=== PATIENT | female | born 1935 | race Caucasian/White ===

== ENCOUNTER → 2017-04-01 | Outpatient (CLI) | payer OTHER ==
[2016-04-06 21:08] VITALS: BP 152/62
--- NOTE | 2017-04-02 11:04 | MRI ---
STUDY: MRI OF THE BRAIN WITHOUT GADOLINIUM HISTORY: Other amnesia. Headache. Chronic sinusitis. Technique: Multiplanar multi-sequence MRI of the brain was obtained utilizing standard departmental protocol. Sagittal and axial T1, axial T2, FLAIR, diffusion (DWI/ADC) images through the brain were performed. Comparison: Head CT dated February 09, 2016. Findings: The sulci, cisterns and ventricles are prominent consistent with diffuse volume loss. There are conf luent and scattered foci of T2 prolongation in the periventricular and subcortical white matter of b oth hemispheres. This is a nonspecific finding which likely represents microangiopathic change in a patient of this age. There are old lacunar infarcts in the basal ganglia bilaterally. There is no evidence of acute cam torial infarction, hemorrhage, mass, mass effect, or midline shift. There are no abnormal intra-axia l or extra-axial fluid collections. The major intracranial vascular flow voids appear intact. The right vertebral artery is dominant. Th ere is bilateral aphakia. IMPRESSION: 1. No evidence of acute intracranial abnormality. 2. 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 3. Nonspecific white matter change and volume loss. Reported By:
== END ==
LOC: RAD 15:36
PROVIDERS: ATTEND Psychiatry & Neurology Neurology
DX: R41.3 Other amnesia (principal)
CPT/HCPCS: 70551